=== PATIENT | female | born 1965 | race Caucasian/White ===

== ENCOUNTER → 2018-11-14 | Outpatient (CLI) | payer OTHER ==
[2018-11-19 00:06] LABS: ASPERGILLUS FLAVUS ABY Negative (Neg:<1:1); ASPERGILLUS FUMIGATUS ABY Negative (Neg:<1:1); ASPERGILLUS NIGER ABY Negative (Neg:<1:1)
[2018-11-24 00:07] LABS: ASPERGILLUS FUMIGATUS AB Negative (Negative); AUREOBASIDIUM PULLULANS Negative (Negative); BLASTOMYCES ANTIBODY LEVEL Negative (Neg:<1:1); CRYPTOCOCCUS ANTIGEN SER Negative (Negative); HISTOPLASMOSIS ANTIBODY Negative (Neg:<1:1); MICROPOLYSPORA FAENI AB Negative (Negative); PIGEON SERUM AB Negative (Negative); THERMOACTINOMYCES SACCHARI Negative (Negative); THERMOACTINOMYCES VULGARIS Negative (Negative)
== END ==
LOC: M SMT 10:23
PROVIDERS: ATTEND Internal Medicine Pulmonary Disease
DX: R91.1 Solitary pulmonary nodule (principal)

== ENCOUNTER → 2018-12-05 | Outpatient (CLI) | payer OTHER ==
--- NOTE | 2018-12-07 10:53 | REP ---
PET/CT: HISTORY: Diagnosing lung cancer. 2 cm pulmonary nodule right lower lobe. COMPARISONS: CT study from [facility] dated October 22, 2018. TECHNIQUE: 48 minutes following the intravenous injection of a 9.61 mCi dose of F-18 FDG, three-dimensional PET scintigraphy is acquired from the skull base to the proximal thighs. Triplanar noncontrast CT scanning is acquired through the same anatomic range for attenuation correction, and image registration with scan parameters optimized to minimize radiation exposure to the patient. PET scintigraphy and CT datasets were fused and displayed on a workstation with multiplanar and projection display capability. PET/CT FINDINGS: Abdomen and pelvis, there is a normal distribution of fluorodeoxyglucose tracer. No abnormal hypermetabolic uptake is seen in the abdomen or pelvis. Head and neck soft tissues are unremarkable. In the chest, there is discernible but nonhypermetabolic uptake in the 2 cm nodule previously noted in the right lower lobe. Maximum standard uptake value is 1.33. There is no abnormal hypermetabolic uptake in the chest. No abnormal uptake is seen in either hilus or mediastinum. No abnormal adrenal uptake is seen. The scan is otherwise unremarkable. IMPRESSION: Barely discernible, nonhypermetabolic uptake in the known right lower lobe pulmonary nodule. Malignancy is not completely excluded. Interval CT followup is recommended. Electronically Signed by Alejandro Burns MD 12/07/2018 03:02 P
== END ==
LOC: M PLARAD 12:04
PROVIDERS: ATTEND Internal Medicine Pulmonary Disease
DX: R91.1 Solitary pulmonary nodule (principal)
CPT/HCPCS: 78815; A9552

== ENCOUNTER → 2020-02-01 | Outpatient (REF) | payer OTHER ==
[2020-03-01 04:23] LABS: BASO # 0.1 10^3/uL (0.0-0.2); BASO % 0.9 % (0.0-1.0); EOS # 0.1 10^3/uL (0.0-0.5); EOS % 1.9 % (0.0-3.0); HEMATOCRIT 44.4 % (36.0-47.0); HEMOGLOBIN 14.4 g/dl (12.0-15.5); LYMPH # 1.4 10^3/uL (1.5-5.0); LYMPH % 23.5 % (24.0-44.0); MEAN CORPUSCULAR HEMOGLOBIN 29.4 pg (27.0-33.0); MEAN CORPUSCULAR HGB CONC 32.4 g/dl (32.0-36.5); MEAN CORPUSCULAR VOLUME 90.6 fl (80.0-96.0); MONO # 0.4 10^3/uL (0.0-0.8); NEUTROPHILS # 3.9 10^3/uL (1.5-8.5); NEUTROPHILS % 66.5 % (36.0-66.0); PLATELET COUNT, AUTOMATED 304 10^3/uL (150-450); WHITE BLOOD COUNT 5.9 10^3/uL (4.0-10.0)
[2020-03-17 10:03] LABS: BLOOD UREA NITROGEN 12 MG/DL (7-18); CALCIUM LEVEL 9.2 MG/DL (8.5-10.1); CARBON DIOXIDE LEVEL 28 MEQ/L (21-32); CHLORIDE LEVEL 103 MEQ/L (98-107); GLOMERULAR FILTRATION RATE > 60.0 (>51); GLUCOSE, FASTING 82 MG/DL (70-100); POTASSIUM SERUM 5.3 MEQ/L (3.5-5.1); SODIUM LEVEL 137 MEQ/L (136-145)
== END ==
LOC: M LAB REF 14:58
PROVIDERS: ATTEND Internal Medicine Pulmonary Disease
DX: Z01.818 Encounter for other preprocedural examination (principal); R91.1 Solitary pulmonary nodule

== ENCOUNTER → 2020-02-16 | Outpatient (CLI) | payer OTHER | LOC: M LABSMTC 08:43 | PROVIDERS: ATTEND Anesthesiology | DX: Z01.812 Encounter for preprocedural laboratory examination (principal); Z11.59 Encounter for screening for other viral diseases ==

== ENCOUNTER 2020-02-20 07:04 | Day surgery (SDC) | payer OTHER ==
[~2020-02-20] VITALS: Ht 157.5 cm; Wt 72.1 kg
[~2020-02-20 07:04] MED LIST: LIDOCAINE 4% INJ 5ML AMP INH ONE
[2020-02-20] MEDS ORDERED: fentaNYL 100 MCG/2 ML INJECTION (J3010) As Ordered ONE (07:54)
[2020-02-20] MEDS ORDERED: propofoL 200 MG/20 ML VIAL As Ordered ONE (07:54)
[2020-02-20] MEDS ORDERED: LIDOCAINE 2% 100MG/5ML SDV (FOR ANES.) As Ordered ONE (07:54)
[2020-02-20] MEDS ORDERED: METOCLOPRAMIDE INJ 10MG/2ML VIAL (J2765 PER 1) As Ordered ONE (07:54)
[2020-02-20] MEDS ORDERED: ROCURONIUM BROMIDE 50 MG/5 ML VIAL As Ordered ONE ×2 (07:54→10:35)
[2020-02-20] MEDS ORDERED: ONDANSETRON 4MG/2ML VIAL As Ordered ONE ×2 (07:54→10:30)
[2020-02-20] MEDS ORDERED: MIDAZOLAM INJ 2MG/2ML VIAL (J2250 PER 1MG) As Ordered ONE (07:55)
[2020-02-20] MEDS ORDERED: THROMBIN SOLN 20,000 UNITS KIT As Ordered ONE (08:00)
[2020-02-20] MEDS ORDERED: CETACAINE SPRAY 5GM As Ordered ONE (08:00)
[2020-02-20] MEDS ORDERED: EPINEPHrine 1MG/10ML SYRINGE 1.5IN As Ordered ONE (08:01)
[2020-02-20] MEDS ORDERED: LIDOCAINE VISCOUS 2% SOLN 15ML UDC As Ordered ONE (08:01)
[2020-02-20] MEDS ORDERED: ALBUTEROL SULFATE 2.5 MG/0.5 ML INH NEB SOLN NEB ONE (08:30)
[2020-02-20] MEDS ORDERED: LIDOCAINE 4% TOPICAL SOLN 50 ML BTL As Ordered ONE ×2 (08:34→08:46)
[2020-02-20] MEDS ORDERED: SUGAMMADEX SODIUM 500 MG/5 ML VIAL (BRIDION) As Ordered ONE (10:35)
[2020-02-20] MEDS ORDERED: diphenhydrAMINE 50MG/ML VIAL (J1200) As Ordered ONE (10:37)
[2020-02-20] MEDS ORDERED: LR 1,000 ML IV SCH (11:00)
[2020-02-20] MEDS ORDERED: HYDROMORPHONE HCL 0.5 MG/ 0.5 ML SYRINGE (J1170 PER 1) IV PRN (11:00)
[2020-02-20] MEDS ORDERED: diphenhydrAMINE 50MG/ML VIAL (J1200) IV ONE (11:00)
[2020-02-20] MEDS ORDERED: ONDANSETRON 4MG/2ML VIAL IV PRN (11:00)
[2020-02-20] MEDS ORDERED: fentaNYL 100 MCG/2 ML INJECTION (J3010) IV PRN (11:00)
[2020-02-20] MEDS ORDERED: oxyCODONE 5MG TAB PO PRN (11:00)
[2020-02-20 12:35] VITALS: BP 112/67
[2020-02-20] MEDS ORDERED: ACETAMINOPHEN 500 MG TAB As Ordered ONE (13:33)
[2020-02-20] MEDS ORDERED: ACETAMINOPHEN 500 MG TAB PO ONE (13:45)
--- NOTE | 2020-02-27 13:57 | REP ---
PORTABLE CHEST X-RAY CLINICAL: Status post endobronchial ultrasound. COMPARISON: 10/22/2018. FINDINGS: Mediastinum and cardiac silhouette are normal. No effusion. No pneumothorax. Very subtle hazy opacity at the right base cannot be excluded. Skeletal structures are intact. IMPRESSION: 1. No effusion or pneumothorax. 2. Subtle hazy right lower lobe opacity cannot be excluded and correlation/follow-up may be warranted. MTDD
--- NOTE | 2020-02-27 14:00 | REP ---
LIMITED CHEST X-RAY: 20 VIEWS HISTORY: Intraprocedural imaging fiberoptic bronchoscopy. Three minutes 46 seconds of fluoroscopy time is reported. FINDINGS: A sequence of 20 last image hold fluoroscopically obtained spot radiographs of the right chest document bronchoscopic position and manipulation. MTDD
--- NOTE | 2020-03-05 11:26 | ROOR ---
Patient Name: Susana Shultz Procedure Date: 02/20/2020 8:05 AM Date of : 1965 Admit Type: Outpatient Age: 54 Room: Main OR Note Status: Section Repairer Override Attending MD: Jacey Rob MD Procedure: Bronchoscopy Indications: Right lower lobe nodule Providers: Jacey Rob MD (Doctor) Referring MD: 1. No Referring Physician 1. No Referring Physician, Admin. (Referring MD) Requesting Physician: Medicines: General Anesthesia, Lidocaine 4% via nebulizer with Albuterol 2.5 mg, Cetacaine topical Complications: No immediate complications. Estimated blood loss: Minimal Procedure: Pre-Anesthesia Assessment: - Prior to the procedure, a History and Physical was performed, and patient medications and allergies were reviewed. The patient's tolerance of previous anesthesia was also reviewed. The risks and benefits of the procedure and the sedation options and risks were discussed with the patient. All questions were answered, and informed consent was obtained. Prior Anticoagulants: The patient has taken no previous anticoagulant or antiplatelet agents. ASA Grade Assessment: II - A patient with mild systemic disease. After reviewing the risks and benefits, the patient was deemed in satisfactory condition to undergo the procedure. The Bronchoscope was introduced through the mouth, via the endotracheal tube (the patient was intubated for the procedure) and advanced to the tracheobronchial tree of both lungs. The procedure was accomplished without difficulty. The patient tolerated the procedure well. Findings: The endotracheal tube is in good position. The visualized portion of the trachea is of normal caliber. The bhavesh is sharp. The tracheobronchial tree was examined to at least the first subsegmental level. Bronchial mucosa with minimal pitting and nodularity. Bronchial anatomy are normal; there are no endobronchial lesions, and no secretions. Robotic Electromagnetic navigation bronchoscopy was performed. The CT scan was used for planning purposes. A virtual bronchoscopic image was generated using the planning software. The target in the right lower lobe was marked. A nodule 2.5 cm in size was found and a pathway was created. After a complete airway exam, [place] robotic bronchoscopy system was utilized with navigation phase to locate the target lesion(s). Positioning centrally (in relation to the lesion) was confirmed using the Olympus radial probe US catheter. Transbronchial biopsies of a nodule were performed in the right lower lobe using forceps and sent for histopathology examination. The procedure was guided by fluoroscopy. Transbronchial biopsy technique was selected because the sampling site was not visible endoscopically. Fluoroscopy guided transbronchial brushings of a nodule were obtained in the right lower lobe with a cytology and a microbiology brush and sent for routine cytology and bacterial, AFB and fungal analysis. Transbronchial brushing technique was selected because the sampling site was not visible endoscopically. Bronchoalveolar lavage was performed in the right lower lobe of the lung and sent for routine cytology and bacterial, AFB and fungal analysis. The return was cellular. There were no mucoid plugs in the return fluid. Impression: - Right lower lobe nodule - The airway examination was normal. - [place] Robotic Electromagnetic navigation bronchoscopy was performed. - Transbronchial lung biopsies were performed. - Transbronchial brushings were obtained. - Bronchoalveolar lavage was performed. Recommendation: - Follow up with bronchoscopist as previously scheduled. Jacey Rob MD 02/20/2020 10:19:26 AM Number of Addenda: 0 Note Initiated On: 02/20/2020 8:05 AM
== END 2020-02-20 13:40 | disposition home or self-care (01) ==
LOC: M SDC 07:04
PROVIDERS: ATTEND Internal Medicine Pulmonary Disease
DX: R91.1 Solitary pulmonary nodule (principal)
CPT/HCPCS: 31623; 31624; 31627; 31628; 71045; 76000; 87070; 87071; 87102; 87116; 87205; 87206; 88104; 88108; 88305; 88313; J1200; J2250; J2405; J2765; J3010; S2900

== ENCOUNTER → 2020-04-15 | Outpatient (CLI) | payer OTHER ==
--- NOTE | 2020-04-18 16:27 | REP ---
INDICATION: DIAGNOSING RIGHT LOWER LOBE. COMPARISON: CT-PET of 12/05/2018, outside CT of 01/14/2020, and latest prior CT of 10/22/2018. TECHNIQUE: After the intravenous administration of 7.47 mCi of FDG 18 triplane whole-body PET-CT was performed from the skull base to the mid thigh. FINDINGS: The right lower lobe pulmonary nodule seen on the prior PET-CT and on the prior CT scans which was shown to be enlarging now has a maximal SUV value of 2.56. This is hypermetabolic activity. No other areas of abnormal hypermetabolic activity are seen in the neck, chest, abdomen, or pelvis. IMPRESSION: The known right lower lobe pulmonary nodule is now hypermetabolic as described above. Whether this hypermetabolism is secondary to inflammatory change or a neoplastic process cannot be determined by this exam. <Electronically signed by Lebron Forbes > 04/18/20 [id number]
== END ==
LOC: M PLARAD 10:19
PROVIDERS: ATTEND Internal Medicine Pulmonary Disease
DX: R91.1 Solitary pulmonary nodule (principal)
CPT/HCPCS: 78815; A9552

== ENCOUNTER → 2020-05-29 | Outpatient (REF) | payer OTHER ==
[2020-05-29 18:19] LABS: BLOOD UREA NITROGEN 8 MG/DL (7-18); CREATININE FOR GFR 0.73 MG/DL (0.55-1.30); GLOMERULAR FILTRATION RATE > 60.0 (>51)
== END ==
LOC: M LAB REF 16:51
PROVIDERS: ATTEND Thoracic Surgery (Cardiothoracic Vascular Surgery)
DX: R91.1 Solitary pulmonary nodule (principal); Z01.812 Encounter for preprocedural laboratory examination

== ENCOUNTER → 2020-06-17 | Outpatient (CLI) | payer OTHER ==
[~2020-06-17] MED LIST changes: +ISOVUE-370 76% 100ML VIAL As Ordered ONE; -LIDOCAINE 4% INJ 5ML AMP INH ONE
--- NOTE | 2020-06-23 14:34 | REP ---
INDICATION: R91.1 COMPARISON: 01/14/2020, 10/22/2018 TECHNIQUE: Axial contrast enhanced images from the thoracic inlet to the upper abdomen with coronal and sagittal reformations using 75 ml Isovue 370 intravenous contrast material. This CT examination was performed using the following dose reduction techniques: Automated exposure control, adjustment of mA and/or kv according to the patient's size, and use of iterative reconstruction technique. FINDINGS: A 1.7 cm part solid lesion in the right lower lobe with spiculated margins is again identified and similar to prior examination. Lesion was noted to be hypermetabolic on PET-CT dated 04/15/2020. Few small noncalcified nodules up to 3 mm are unchanged. No further consolidation, significant nodule or mass lesion. No pleural effusion. No pneumothorax. Tracheobronchial tree is patent. No significant adenopathy. Mediastinum demonstrates normal stable thoracic aorta, pulmonary vasculature, and heart/pericardium. Thyroid gland appears normal. Surrounding musculoskeletal structures are intact. Limited upper abdomen demonstrates normal bilateral adrenal glands. IMPRESSION: 1. Stable 1.7 cm part solid lesion in the right lower lobe with spiculated margins unchanged compared to 01/14/2020 and was identified as hypermetabolic on PET-CT dated 04/15/2020. 2. No associated adenopathy, effusion or new significant lesions are appreciated. <Electronically signed by Zeferino James > 06/23/20 [id number]
== END ==
LOC: M RAD 17:36
PROVIDERS: ATTEND Thoracic Surgery (Cardiothoracic Vascular Surgery)
DX: R91.1 Solitary pulmonary nodule (principal); R91.8 Other nonspecific abnormal finding of lung field
CPT/HCPCS: 71260; Q9967

== ENCOUNTER → 2020-11-12 | Outpatient (CLI) | payer OTHER ==
--- NOTE | 2020-11-12 08:17 | REP ---
INDICATION: SOLITARY PULMONARY NODULE, ABN FINDING OF LUNG COMPARISON: None TECHNIQUE: Axial noncontrast images from the thoracic inlet to the upper abdomen with coronal and sagittal reformations. This CT examination was performed using the following dose reduction techniques: Automated exposure control, adjustment of mA and/or kv according to the patient's size, and use of iterative reconstruction technique. FINDINGS: 2 cm part solid opacity with spiculated margins in the periphery of the right lower lobe (series 201, images 49-57) is again identified and relatively unchanged. Small 2 mm adjacent satellite nodule remain stable as well. No acute consolidation, new nodule or mass. No effusion. No pneumothorax. Tracheobronchial tree is patent. Nonspecific mediastinal lymph nodes measure up to approximately 11 mm. Thoracic aorta, pulmonary vasculature, and heart/pericardium are stable. Limited upper abdomen demonstrates normal bilateral adrenal glands. Musculoskeletal structures are intact IMPRESSION: 1. 2 cm part solid lesion in the periphery of the right lower lobe remains essentially unchanged. Finding was noted to be hypermetabolic on most recent PET-CT. Biopsy may be warranted. 2. No new acute mediastinal or pleuroparenchymal process appreciated. <Electronically signed by Zeferino James > 11/12/20 [id number]
== END ==
LOC: M RAD 07:22
PROVIDERS: ATTEND Thoracic Surgery (Cardiothoracic Vascular Surgery)
DX: R91.8 Other nonspecific abnormal finding of lung field (principal)

== ENCOUNTER → 2021-08-18 | Outpatient (CLI) | payer OTHER | LOC: M RAD 11:04 | PROVIDERS: ATTEND Internal Medicine Pulmonary Disease | DX: R91.1 Solitary pulmonary nodule (principal) ==

== ENCOUNTER → 2022-04-05 | Outpatient (CLI) | payer OTHER | LOC: M PLARAD 13:52 | PROVIDERS: ATTEND Thoracic Surgery (Cardiothoracic Vascular Surgery) | DX: C34.31 Malignant neoplasm of lower lobe, right bronchus or lung (principal) | CPT/HCPCS: 78815; A9552 ==

== ENCOUNTER → 2022-04-22 | Outpatient (CLI) | payer OTHER | LOC: M LABSMTC 10:24 | PROVIDERS: ATTEND Anesthesiology | DX: Z01.812 Encounter for preprocedural laboratory examination (principal); Z11.52 Encounter for screening for COVID-19 ==

== ENCOUNTER 2022-04-27 08:11 | Emergency (ER) | payer OTHER ==
[~2022-04-27] VITALS: Ht 157.5 cm; Wt 75.5 kg
[2022-04-27 09:17] LABS: BASO # 0.1 10^3/uL (0.0-0.2); BASO % 0.4 % (0.0-1.0); EOS % 0.2 % (0.0-3.0); HEMATOCRIT 46.4 % (36.0-47.0); HEMOGLOBIN 14.9 g/dl (12.0-15.5); LYMPH % 7.6 % (24.0-44.0); MEAN CORPUSCULAR HGB CONC 32.1 g/dl (32.0-36.5); MEAN CORPUSCULAR VOLUME 90.3 fl (80.0-96.0); MONO # 0.4 10^3/uL (0.0-0.8); MONO % 2.7 % (2.0-8.0); NEUTROPHILS # 11.4 10^3/uL (1.5-8.5); NEUTROPHILS % 88.7 % (36.0-66.0); PLATELET COUNT, AUTOMATED 306 10^3/uL (150-450); RED BLOOD COUNT 5.14 10^6/uL (4.00-5.40); WHITE BLOOD COUNT 12.9 10^3/uL (4.0-10.0)
[2022-04-27] MEDS ORDERED: NS 1,000 ML IV ONE ×2 (09:25)
[2022-04-27 09:49] LABS: BLOOD UREA NITROGEN 6 MG/DL (7-18); CALCIUM LEVEL 9.8 MG/DL (8.5-10.1); CARBON DIOXIDE LEVEL 27 MEQ/L (21-32); CHLORIDE LEVEL 106 MEQ/L (98-107); CREATININE FOR GFR 0.89 MG/DL (0.55-1.30); GLOMERULAR FILTRATION RATE > 60.0 (>51); GLUCOSE, FASTING 123 MG/DL (70-100); POTASSIUM SERUM 4.2 MEQ/L (3.5-5.1); SODIUM LEVEL 138 MEQ/L (136-145)
[2022-04-27 10:14] VITALS: BP 135/83
== END 2022-04-27 10:18 | disposition home or self-care (01) ==
LOC: M ED 08:11
DX: R55 Syncope and collapse (principal)

== ENCOUNTER 2022-04-27 10:22 | Day surgery (SDC) | payer OTHER ==
[~2022-04-27] VITALS: Ht 157.5 cm; Wt 75.3 kg
[~2022-04-27 10:22] MED LIST changes: -ISOVUE-370 76% 100ML VIAL As Ordered ONE; +NS 1,000 ML IV ONE
[2022-04-27] MEDS ORDERED: ONDANSETRON 4MG 2ML VIAL As Ordered ONE (10:42)
[2022-04-27] MEDS ORDERED: ONDANSETRON 4MG 2ML VIAL IV PRN (10:50)
[2022-04-27 12:15] VITALS: BP 132/71
[2022-04-27] MEDS ORDERED: propofoL 200 MG/20 ML VIAL As Ordered ONE (13:10)
[2022-04-27] MEDS ORDERED: LIDOCAINE 2% 100MG/5ML SDV (FOR ANES.) As Ordered ONE (13:10)
== END 2022-04-27 12:33 | disposition home or self-care (01) ==
LOC: M OPP 10:22
PROVIDERS: ATTEND Internal Medicine Gastroenterology
DX: Z12.11 Encounter for screening for malignant neoplasm of colon (principal); D12.4 Benign neoplasm of descending colon; D12.5 Benign neoplasm of sigmoid colon; K64.8 Other hemorrhoids; K21.00 Gastro-esophageal reflux disease with esophagitis, without bleeding; C34.90 Malignant neoplasm of unspecified part of unspecified bronchus or lung; F41.9 Anxiety disorder, unspecified
CPT/HCPCS: 43235; 45385; 88305; J2405

== ENCOUNTER → 2022-07-07 | Outpatient (CLI) | payer OTHER ==
[~2022-07-07] MED LIST changes: -NS 1,000 ML IV ONE; +PROHANCE 279.3MG/ML 15ML VIAL As Ordered ONE
== END ==
LOC: M RAD 17:09
PROVIDERS: ATTEND Nurse Practitioner Family
DX: C34.91 Malignant neoplasm of unspecified part of right bronchus or lung (principal)
CPT/HCPCS: 70553; A9576

== ENCOUNTER → 2023-01-10 | Outpatient (CLI) | payer OTHER ==
[~2023-01-10] MED LIST changes: +ISOVUE-370 76% 100ML VIAL As Ordered ONE; -PROHANCE 279.3MG/ML 15ML VIAL As Ordered ONE
== END ==
LOC: M RAD 10:13
PROVIDERS: ATTEND Internal Medicine Hematology & Oncology
DX: C34.91 Malignant neoplasm of unspecified part of right bronchus or lung (principal)
CPT/HCPCS: 71260; Q9967

== ENCOUNTER → 2024-05-07 | Outpatient (CLI) | payer OTHER | LOC: M RAD 07:55 | PROVIDERS: ATTEND Internal Medicine Hematology & Oncology | DX: C34.91 Malignant neoplasm of unspecified part of right bronchus or lung (principal) ==

== ENCOUNTER → 2024-11-12 | Outpatient (CLI) | payer OTHER | LOC: M RAD 15:57 | PROVIDERS: ATTEND Internal Medicine Hematology & Oncology | DX: C34.91 Malignant neoplasm of unspecified part of right bronchus or lung (principal) ==